=== PATIENT | female | born 2000 | race Two or more races ===

== ENCOUNTER 2021-10-17 19:37 | Inpatient (IN) | payer MEDICAID, SELFPAY ==
[~2021-10-17] VITALS: Ht 162.6 cm; Wt 107.0 kg
[2021-10-17 20:38] VITALS: BP 125/79
[2021-10-17] MEDS ORDERED: AMPICILLIN 2,000 MG in NACL 0.9% MINI-BAG PLUS 100 ML IV SCH (20:50)
[2021-10-17] MEDS ORDERED: MISOPROSTOL 25 MCG TAB VG PRN (20:50)
[2021-10-17] MEDS ORDERED: METHYLERGONOVINE 0.2 MG/ML AMP IM PRN (20:50)
[2021-10-17] MEDS ORDERED: MORPHINE SULFATE 5 MG/ML VIAL IVP PRN (20:50)
[2021-10-17] MEDS ORDERED: CARBOPROST 250 MCG/ML AMP IM PRN (20:50)
[2021-10-17] MEDS ORDERED: OXYTOCIN 20 UNITS in LACTATED RINGERS 1,000 ML IV SCH (20:50)
[2021-10-17 21:25] LABS: BASOPHILS # (AUTO) 0.1 K/uL (0.00-0.22); BASOPHILS % (AUTO) 0.7 % (0.0-2.0); EOSINOPHILS % (AUTO) 0.1 % (0.0-4.0); HEMATOCRIT 30.3 % (36-48); HEMOGLOBIN 10.6 g/dL (12.0-16.0); LYMPHOCYTES # (AUTO) 2.5 K/uL (2.5-16.5); LYMPHOCYTES % (AUTO) 24.6 % (20.5-51.1); MEAN CORPUSCULAR HEMOGLOBIN 28 pg (27-31); MEAN CORPUSCULAR HGB CONC 35 g/dL (33-37); MEAN CORPUSCULAR VOLUME 80.9 fL (80-94); MONOCYTES # (AUTO) 0.8 K/uL (0.8-1.0); MONOCYTES % (AUTO) 7.6 % (1.7-9.3); NEUTROPHILS # (AUTO) 6.7 K/uL (1.8-7.7); PLATELET COUNT (AUTO) 228 K/uL (140-450); RED BLOOD CELL COUNT(AUTO) 3.75 MIL/uL (4.20-5.40); RED CELL DISTRIBUTION WIDTH 15.2 % (11.6-13.7); WHITE BLOOD COUNT (AUTO) 10.1 K/uL (4.8-10.8)
[2021-10-17 21:49] LABS: ALBUMIN 2.3 g/dL (3.4-5.0); ANION GAP 14.7 (8-16); CARBON DIOXIDE 22.1 mmol/L (21-32); CREATININE 0.6 mg/dL (0.6-1.3); POTASSIUM 3.8 mmol/L (3.5-5.1); TOTAL BILIRUBIN 0.3 mg/dL (0.0-1.0)
[2021-10-17] MEDS: LACTATED RINGERS 1,000 ML IV SCH (21:55)
[2021-10-17 22:12] LABS: APPEARANCE,URINE CLEAR (CLEAR); BILIRUBIN,URINE NEGATIVE (NEGATIVE); BLOOD, URINE 3+ (NEGATIVE); COLOR,URINE YELLOW (YELLOW); LEUKOCYTE ESTERASE ,URINE NEGATIVE (NEGATIVE); NITRITE, URINE NEGATIVE (NEGATIVE); UGLUCOSE NEGATIVE (NEGATIVE)
[2021-10-17 22:25] LABS: RBC,URINE 0-5 /HPF (0-5); WBC,URINE 0-5 /HPF (0-5)
[2021-10-17] MEDS ORDERED: FERR325E14 PO (22:41)
[2021-10-17] MEDS ORDERED: PNV91TAB8 PO (22:41)
[2021-10-18] MEDS: LACTATED RINGERS 1,000 ML IV SCH (03:00)
[2021-10-18] MEDS: AMPICILLIN 1,000 MG in NACL 0.9% MINI-BAG PLUS 50 ML IV SCH ×3 (06:50→22:52)
--- NOTE | 2021-10-18 09:30 | NUR ---
PATIENT HAS BEEN SCREENED AND CATEGORIZED LOW NUTRITION RISK. PATIENT WILL BE SEEN WITHIN 7 DAYS OF ADMISSION. 10/24/[address]
[2021-10-18] MEDS ORDERED: OXYTOCIN 20 UNITS/LR PREMIX 1,000 ML IV ONE (10:40)
[2021-10-18] MEDS ORDERED: AMPICILLIN 2,000 MG VIAL ONE (10:42)
[2021-10-18] MEDS ORDERED: MORPHINE SULFATE 10 MG/ML VIAL ONE (14:32)
[2021-10-18 14:38] VITALS: BP 123/79
[2021-10-18] MEDS: ONDANSETRON 4 MG/2 ML VIAL IVP PRN ×2 (14:38→21:17)
[2021-10-18] MEDS ORDERED: AMPICILLIN 1,000 MG VIAL ONE ×3 (14:43→20:46)
[2021-10-18] MEDS ORDERED: ROPIVACAINE 0.2%/NS PREMIX 200 ML EPI ONE (17:50)
[2021-10-18] MEDS ORDERED: ROPIVACAINE 0.2%/NS PREMIX 100 ML EPI SCH (18:45)
[2021-10-19] MEDS: LACTATED RINGERS 1,000 ML IV SCH ×2 (00:42→09:07)
[2021-10-19] MEDS ORDERED: AMPICILLIN 1,000 MG VIAL ONE ×2 (02:18→06:24)
[2021-10-19] MEDS: AMPICILLIN 1,000 MG in NACL 0.9% MINI-BAG PLUS 50 ML IV SCH (02:51)
[2021-10-19] MEDS ORDERED: ROPIVACAINE 0.2%/NS PREMIX 200 ML EPI ONE (06:18)
[2021-10-19] MEDS ORDERED: IBUPROFEN 800 MG TAB PO PRN (14:50)
[2021-10-19] MEDS ORDERED: METHYLERGONOVINE 0.2 MG/ML AMP IM PRN (14:50)
[2021-10-19] MEDS ORDERED: MEASLES, MUMPS, AND RUBELLA 1 VIAL SQVAC ONE (14:50)
[2021-10-19] MEDS ORDERED: METHYLERGONOVINE 0.2 MG TAB PO PRN (14:50)
[2021-10-19] MEDS ORDERED: OXYTOCIN 10 UNITS/ML VIAL IM PRN (14:50)
[2021-10-19] MEDS ORDERED: BENZOCAINE/MENTHOL 20%-0.5% 60 GM CAN TP PRN (14:50)
[2021-10-19] MEDS ORDERED: MEASLES, MUMPS, AND RUBELLA 1 VIAL SQVAC PRN (14:55)
[2021-10-19] MEDS ORDERED: ACETAMINOPHEN 325 MG TAB PO PRN (18:20)
[2021-10-20 09:22] LABS: HEMATOCRIT 24.5 % (36-48); HEMOGLOBIN 8.5 g/dL (12.0-16.0)
[2021-10-20] MEDS: FERROUS GLUCONATE 324 MG TAB PO SCH ×2 (10:52→18:17)
[2021-10-20] MEDS ORDERED: POLYETHYLENE GLYCOL 17 GM/PKT PO PRN (14:45)
[2021-10-20] MEDS: DOCUSATE SODIUM 100 MG GELCAP PO PRN (18:17)
[2021-10-21] MEDS: DOCUSATE SODIUM 100 MG GELCAP PO PRN (09:22)
[2021-10-21] MEDS: FERROUS GLUCONATE 324 MG TAB PO SCH (09:22)
== END 2021-10-21 10:30 | disposition home or self-care (01) | DRG 560 ==
LOC: MLD 19:37 → OBSVTOIN 20:47 → MFCC 10-19 17:55
PROVIDERS: ADMIT Obstetrics & Gynecology; ATTEND Obstetrics & Gynecology
PROC: 10E0XZZ Delivery of Products of Conception, External Approach (ICD-10-PCS; principal; 2021-10-19)
PROC: 0HQ9XZZ Repair Perineum Skin, External Approach (ICD-10-PCS; 2021-10-19)
PROC: 3E0R3BZ Introduction of Anesthetic Agent into Spinal Canal, Percutaneous Approach (ICD-10-PCS; 2021-10-19)
PROC: 00HU33Z Insertion of Infusion Device into Spinal Canal, Percutaneous Approach (ICD-10-PCS; 2021-10-19)
PROC: 3E0P7VZ Introduction of Hormone into Female Reproductive, Via Natural or Artificial Opening (ICD-10-PCS; 2021-10-19)
DX: O69.81X0 Labor and delivery complicated by cord around neck, without compression, not applicable or unspecified (principal); Z37.0 Single live birth; D62 Acute posthemorrhagic anemia; O67.9 Intrapartum hemorrhage, unspecified; O77.0 Labor and delivery complicated by meconium in amniotic fluid; Z20.822 Contact with and (suspected) exposure to COVID-19; O70.0 First degree perineal laceration during delivery; Z3A.40 40 weeks gestation of pregnancy; O99.02 Anemia complicating childbirth
CPT/HCPCS: 36415; 51702; 59200; 59409; 76815; 80053; 81001; 85018; 85025; 86592; 86886; 86900; 86901; 87086; G0378; J0290; J2270; J2405; J2590; J2795; J7120; Q0092